=== PATIENT | male | born 1975 | race Caucasian/White ===

== ENCOUNTER 2017-01-22 12:29 | Inpatient (IN) | payer MEDICARE, MEDICAID ==
[~2017-01-22] VITALS: Ht 175.3 cm; Wt 93.4 kg
[~2017-01-22 12:29] MED LIST: BENZ1TAB70 PO; ESCI10TA PO; HALO5TAB23 PO; OLAN10TA3 PO; OLAN20TA2 PO; QUET300T2 PO
[2017-01-22] MEDS ORDERED: INFLUENZA VIRUS VACCINE QVS 2016-17 (3YR+)/PF 60 MCG/0.5 ML SYRINGE IM ONE (12:45)
[2017-01-22] MEDS ORDERED: ZOLPIDEM TARTRATE 10 MG TABLET PO PRN (13:00)
[2017-01-22] MEDS ORDERED: PNEUMOCOCCAL VACCINE POLYVALENT 0.5 ML VIAL [PPSV23] IM ONE (13:00)
[2017-01-22] MEDS ORDERED: HALOPERIDOL 5 MG TABLET PO PRN (13:00)
[2017-01-22] MEDS ORDERED: LORazepam 2 MG TABLET PO PRN (13:00)
[2017-01-22 13:13] VITALS: BP 108/62
[2017-01-22] MEDS ORDERED: QUET25TA PO (13:22)
[2017-01-22] MEDS ORDERED: BENZ0.5T6 PO (13:22)
[2017-01-22] MEDS ORDERED: SERT50TA12 PO (13:22)
[2017-01-22] MEDS ORDERED: OLAN2.5T3 PO (13:22)
[2017-01-22] MEDS ORDERED: CLOZ25TA4 PO (13:22)
[2017-01-22] MEDS ORDERED: HALO10 PO (13:22)
[2017-01-23 07:10] VITALS: BP 125/78
[2017-01-23 08:13] VITALS: BP 115/64
[2017-01-23 08:41] LABS: EOSINOPHILS % (AUTO) 0.8 % (1.0-6.0); HEMATOCRIT 37.3 % (41-53); LYMPHOCYTES % (AUTO) 30.3 % (22.0-44.0); MEAN CORPUSCULAR HEMOGLOBIN 24.5 pg (26.0-34.0); MEAN CORPUSCULAR HGB CONC 32.1 G/dL (31.0-37.0); MEAN CORPUSCULAR VOLUME 76 fL (80-100); MONOCYTES # (AUTO) 0.3 K/uL (0.1-1.0); MONOCYTES % (AUTO) 4.9 % (2.0-9.0); NEUTROPHILS # (AUTO) 4.2 K/uL (1.8-7.7); PLATELET COUNT (AUTO) 221 K/uL (150-450); RED BLOOD CELL COUNT(AUTO) 4.89 MIL/uL (4.50-5.90); RED CELL DISTRIBUTION WIDTH 14.3 % (11.5-14.5); WHITE BLOOD COUNT (AUTO) 6.6 K/uL (4.5-11.0)
[2017-01-23 09:30] LABS: ALANINE AMINOTRANSFERASE 82 U/L (12-78); ALBUMIN 3.5 g/dL (3.4-5.0); ANION GAP 10 mmol/L (8-16); ASPARTATE AMINOTRANSFERASE 52 U/L (15-37); BILIRUBIN,TOTAL 0.7 mg/dL (0.1-1.0); CALCIUM, TOTAL 8.2 mg/dL (8.8-10.5); CARBON DIOXIDE 26 mmol/L (22-29); CHLORIDE 103 mmol/L (98-107); CREATININE 1.15 mg/dL (0.60-1.30); GLOMERULAR FILTR. RATE CALC > 60 mL/min (>60); SODIUM SERUM 139 mmol/L (136-145); TOTAL PROTEIN, SERUM 6.3 g/dL (6.4-8.2); UREA NITROGEN, BLOOD 16 mg/dL (7-18)
[2017-01-23] MEDS ORDERED: BENZOCAINE/MENTHOL LOZENGE MM PRN (10:45)
[2017-01-23] MEDS ORDERED: MAGNESIUM HYDROXIDE SUSPENSION 30 ML UDCUP PO PRN (10:45)
[2017-01-23] MEDS ORDERED: MAG HYDROX/AL HYDROX/SIMETH ES 30 ML SUSPENSION UDCUP PO PRN (10:45)
[2017-01-23] MEDS ORDERED: ONDANSETRON HCL 4 MG TABLET PO PRN (10:45)
[2017-01-23] MEDS ORDERED: BACITRACIN 28.4 GM OINTMENT TP PRN (10:45)
[2017-01-23] MEDS ORDERED: PETROLATUM,WHITE 71 GM JELLY TP PRN (10:45)
[2017-01-23] MEDS ORDERED: CloNIDine HCL 0.1 MG TABLET PO PRN (10:45)
[2017-01-23] MEDS ORDERED: IBUPROFEN 600 MG TABLET PO PRN (10:45)
[2017-01-23] MEDS ORDERED: ALBUTEROL SULFATE HFA 90 MCG/PUFF 8 GM INHALER IH PRN (10:45)
[2017-01-23] MEDS ORDERED: LOPERAMIDE HCL 2 MG CAPSULE PO PRN (10:45)
[2017-01-23] MEDS ORDERED: ACETAMINOPHEN 325 MG TABLET PO PRN (10:45)
[2017-01-23] MEDS ORDERED: CloZAPine 25 MG TABLET PO SCH (11:00)
[2017-01-23 11:11] LABS: RBC MORPHOLOGY COMMENT ABNORMAL RBC MORPH
[2017-01-23 16:30] VITALS: BP 112/83
[2017-01-24 06:37] VITALS: BP 112/65
[2017-01-24 08:03] VITALS: BP 110/64
[2017-01-24] MEDS ORDERED: CloZAPine 25 MG TABLET PO SCH ×2 (09:00→21:00)
[2017-01-24 16:12] VITALS: BP 126/69
[2017-01-25 07:04] VITALS: BP 112/87
[2017-01-25 08:03] VITALS: BP 109/55
[2017-01-25] MEDS ORDERED: CloZAPine 25 MG TABLET PO SCH ×2 (09:00→21:00)
[2017-01-25 16:00] VITALS: BP 122/66
[2017-01-26 06:42] VITALS: BP 119/63
[2017-01-26 08:03] VITALS: BP 122/63
[2017-01-26] MEDS: CloZAPine 25 MG TABLET PO SCH ×2 (09:44→20:33)
[2017-01-26 16:08] VITALS: BP 120/61
[2017-01-27 06:12] VITALS: BP 125/65
[2017-01-27 08:17] VITALS: BP 109/61
[2017-01-27] MEDS: CloZAPine 25 MG TABLET PO SCH ×2 (09:18→20:27)
[2017-01-27 16:00] VITALS: BP 117/68
[2017-01-28 06:15] VITALS: BP 110/68
[2017-01-28 08:03] VITALS: BP 125/67
[2017-01-28] MEDS ORDERED: CloZAPine 25 MG TABLET PO SCH (09:00)
[2017-01-28 16:06] VITALS: BP 115/62
[2017-01-28] MEDS ORDERED: CloZAPine 100 MG TABLET PO SCH (21:00)
[2017-01-28 23:55] VITALS: BP 95/55
[2017-01-29 01:44] VITALS: BP 95/55
[2017-01-29 08:23] VITALS: BP 105/63
[2017-01-29 08:51] LABS: CHOL/HDL RATIO 1.9 (4.2-7.3)
[2017-01-29] MEDS ORDERED: CloZAPine 25 MG TABLET PO SCH (09:00)
[2017-01-29 09:43] LABS: THYROID STIMULATING HORMONE 1.62 uIU/mL (0.36-3.74)
[2017-01-29 16:28] VITALS: BP 122/66
[2017-01-29] MEDS ORDERED: CloZAPine 100 MG TABLET PO SCH (21:00)
[2017-01-30 06:11] VITALS: BP 106/63
[2017-01-30 08:00] VITALS: BP 109/68
[2017-01-30] MEDS ORDERED: CloZAPine 25 MG TABLET PO SCH (09:00)
[2017-01-30 13:12] LABS: HEPATITIS Bs ANTIGEN SCREEN P Negative (Negative); HEPATITIS C AB SCREEN <0.1 s/co ratio (0.0-0.9)
[2017-01-30 16:26] VITALS: BP 108/67
[2017-01-30] MEDS ORDERED: CloZAPine 100 MG TABLET PO SCH (21:00)
[2017-01-31 00:23] VITALS: BP 139/71
[2017-01-31 08:21] VITALS: BP 138/75
[2017-01-31 08:42] LABS: BASOPHILS % (AUTO) 0.4 % (0.0-2.0); EOSINOPHILS % (AUTO) 0.6 % (1.0-6.0); HEMATOCRIT 35.5 % (41-53); HEMOGLOBIN 11.4 g/dL (13.5-17.5); LYMPHOCYTES # (AUTO) 1.7 K/uL (1.0-4.8); LYMPHOCYTES % (AUTO) 23.4 % (22.0-44.0); MEAN CORPUSCULAR HEMOGLOBIN 24.4 pg (26.0-34.0); MEAN CORPUSCULAR HGB CONC 32.2 G/dL (31.0-37.0); MEAN CORPUSCULAR VOLUME 76 fL (80-100); MONOCYTES # (AUTO) 0.3 K/uL (0.1-1.0); MONOCYTES % (AUTO) 4.4 % (2.0-9.0); NEUTROPHILS # (AUTO) 5.3 K/uL (1.8-7.7); NEUTROPHILS % (AUTO) 71.2 % (40.0-70.0); PLATELET COUNT (AUTO) 236 K/uL (150-450); RED BLOOD CELL COUNT(AUTO) 4.68 MIL/uL (4.50-5.90); RED CELL DISTRIBUTION WIDTH 13.6 % (11.5-14.5); WHITE BLOOD COUNT (AUTO) 7.5 K/uL (4.5-11.0)
[2017-01-31] MEDS: CloZAPine 100 MG TABLET PO SCH ×2 (10:00→20:48)
[2017-01-31 16:29] VITALS: BP 123/62
[2017-02-01 06:42] VITALS: BP 125/62
[2017-02-01 08:45] VITALS: BP 106/61
[2017-02-01] MEDS: CloZAPine 100 MG TABLET PO SCH ×2 (09:12→20:16)
[2017-02-01 16:29] VITALS: BP 132/62
[2017-02-02 00:25] VITALS: BP 101/72
[2017-02-02 08:58] VITALS: BP 128/49
[2017-02-02] MEDS ORDERED: CloZAPine 25 MG TABLET PO SCH (09:00)
[2017-02-02 11:17] VITALS: BP 117/65
[2017-02-02 16:00] VITALS: BP 118/60
[2017-02-02] MEDS ORDERED: CloZAPine 100 MG TABLET PO SCH (21:00)
[2017-02-03 05:20] VITALS: BP 135/88
[2017-02-03 08:39] VITALS: BP 116/60
[2017-02-03] MEDS ORDERED: CloZAPine 25 MG TABLET PO SCH (09:00)
[2017-02-03 16:11] VITALS: BP 123/65
[2017-02-03] MEDS ORDERED: CloZAPine 100 MG TABLET PO SCH (21:00)
[2017-02-04 00:35] VITALS: BP 110/60
[2017-02-04 08:25] VITALS: BP 121/64
[2017-02-04] MEDS ORDERED: CloZAPine 100 MG TABLET PO SCH ×2 (09:00→21:00)
[2017-02-04 16:14] VITALS: BP 133/67
[2017-02-05] MEDS ORDERED: CLOZ100 PO ×2 (05:11)
[2017-02-05 06:17] VITALS: BP 135/72
== END 2017-02-05 07:15 | disposition home or self-care (01) | DRG 885 ==
LOC: B3A 13:16 → B2S 01-28 13:56
PROVIDERS: ADMIT Psychiatry & Neurology Psychiatry; ATTEND Psychiatry & Neurology Psychiatry
DX: F20.0 Paranoid schizophrenia (principal); F17.210 Nicotine dependence, cigarettes, uncomplicated; J45.909 Unspecified asthma, uncomplicated; K59.00 Constipation, unspecified; E83.51 Hypocalcemia; E03.9 Hypothyroidism, unspecified; F15.90 Other stimulant use, unspecified, uncomplicated; G31.84 Mild cognitive impairment of uncertain or unknown etiology; D50.9 Iron deficiency anemia, unspecified; R74.0 Nonspecific elevation of levels of transaminase and lactic acid dehydrogenase [LDH]; F12.90 Cannabis use, unspecified, uncomplicated; Z71.6 Tobacco abuse counseling; Z28.21 Immunization not carried out because of patient refusal
CPT/HCPCS: 80074; 82306; 83540; 83550; 84443